=== PATIENT | female | born 2000 | race Caucasian/White ===

== ENCOUNTER 2025-07-07 12:03 | Emergency (ER) | payer MEDICAID ==
[~2025-07-07] VITALS: Ht 157.5 cm; Wt 100.0 kg
[2025-07-07 12:06] VITALS: O2SAT 99
[2025-07-07 12:50] LABS: BASOPHILS % 0.5 % (0.0-2.0); EOSINOPHILS % 1.5 % (0.0-5.0); HEMATOCRIT. 38.1 % (36.0-48.0); HEMOGLOBIN. 12.2 g/dL (12.0-16.0); LYMPHOCYTES % 18.7 % (20.0-50.0); MEAN PLATELET VOLUME 9.4 fl (7.4-10.4); MONOCYTES % 4.1 % (2.0-8.0); NEUTROPHILS % 75.2 % (40.0-76.0); PLATELET 248 x1000/uL (130-400); RED BLOOD CELL COUNT 4.52 mill/uL (4.2-5.4); RED CELL DISTRIBUTION WIDTH 17.3 % (11.6-14.6)
[2025-07-07] MEDS: FAMOTIDINE 20MG/2ML VIAL IV ONE (12:51)
[2025-07-07] MEDS: SODIUM CHLORIDE 0.9% 1,000 ML IV ONE (12:51)
[2025-07-07 13:04] LABS: CREATININE 0.7 mg/dL (0.6-1.0); UREA NITROGEN BLOOD 8 mg/dL (9-23)
[2025-07-07 13:06] LABS: ASPARTATE AMINOTRANSFERASE 16 IU/L (<34); BILIRUBIN DIRECT 0.2 mg/dL (<=3.0); BILIRUBIN TOTAL 0.6 mg/dL (0.1-1.0)
[2025-07-07 13:07] LABS: PROTEIN TOTAL 7.4 g/dL (6.0-8.3)
[2025-07-07 13:28] LABS: HCG SCREEN NEGATIVE
[2025-07-07] MEDS: KETOROLAC 30MG/ML VIAL IV SCH (14:30)
[2025-07-07] MEDS ORDERED: TAMS-54 MT (16:47)
[2025-07-07] MEDS ORDERED: IBUP-1455 MT (16:47)
[2025-07-07 17:47] VITALS: BP 113/64; PULSE 96; RESP 18; TEMP 36.7; O2SAT 99
== END 2025-07-07 18:06 | disposition home or self-care (01) ==
LOC: ER 12:03
DX: R56.9 Unspecified convulsions (principal); N20.0 Calculus of kidney; Z79.899 Other long term (current) drug therapy
CPT/HCPCS: 80076; 80048; 80320; 84703; 83690; 85025; 36415; 70450; 74176; 93005; 96361; 96374; 99285; J1308; J7030; Z7610 ×3; A4606; G0480